=== PATIENT | female | born 1970 | race Caucasian/White ===

== ENCOUNTER 2016-10-27 19:43 | Emergency (ER) | payer OTHER ==
[~2016-10-27] VITALS: Ht 165.1 cm; Wt 108.9 kg
[2016-10-27 20:06] VITALS: BP 147/102
--- NOTE | 2016-10-27 20:47 | PHYS DOC ---
General Chief Complaint: MECHANICAL FALL Stated Complaint: MECHANICAL FALL Time Seen by MD: 19:51 Source: patient Exam Limitations: no limitations Problems: History of Present Illness Initial Comments Patient is a 46-year-old female who comes to the ED complaining of bilateral ankle injuries and pain. Patient states that immediately prior to arrival she was walking down 3 stairs and slipped causing her to fall. She states her left ankle rolled in an inversion mechanism she has lateral ankle pain at the left ankle with mild swelling at the ATF ligament. The right ankle was forced into extreme dorsiflexion, she has mild swelling and tenderness at the distal lower leg syndesmosis. She denies other injuries from the fall denies head trauma loss of consciousness head or neck pain. She is able to walk with some discomfort, pain described as sharp and throbbing actually absent at rest, moderate to severe with jarring movement. Patient is leaving for [place] next week and is hoping this will not alter her travel plans. No pre-arrival treatment patient is normally healthy. Onset: this afternoon Severity: moderate Pain/Injury Location: bilateral ankle Method of Injury: fell Modifying Factors: worse with jarring, worse with movement, improves with rest Allergies: Coded Allergies: No Known Drug Allergies (Unverified , 10/27/16) Past Medical History Medical History: other (asthma, migraine) Surgical History: noncontributory Social History Smoker: non-smoker Alcohol: none Drugs: none Review of Systems Constitutional: denies chills, denies fever Respiratory: denies cough, denies shortness of breath Cardiovascular: denies chest pain, denies palpitations Gastrointestinal: denies diarrhea, denies nausea, denies vomiting Genitourinary: denies dysuria, denies frequency, denies hematuria Musculoskeletal: see HPI Skin: see HPI Psychiatric/Neurological: see HPI Physical Exam General Appearance: WD/WN, no apparent distress HEENT: normal ENT inspection Neck: non-tender, supple Cardiovascular/Respiratory: normal peripheral pulses, no respiratory distress Back: no CVA tenderness, no vertebral tenderness Ankles: left ankle soft tissue tenderness (left ankle with mild swelling, tenderness at the anterior talofibular ligament negative drawer, no bony tenderness no ecchymosis or skin breaks no palpable deformity. The extremity is neurovascularly intact.), right ankle swelling (localized tenderness and swelling at the distal lower extremities syndesmosis consistent with high ankle sprain, no bony tenderness no palpable deformity ligaments and tendons are intact the extremity is neurovascularly intact) Neurologic/Tendon: normal sensation, normal motor functions, normal tendon functions, responds to pain, no evidence tendon injury Psychiatric: alert, oriented x 3 Skin: normal color, warm/dry Orders, Labs, Meds Bilateral ankles: No acute osseous abnormality, interpreted by me Departure Time of Disposition: 20:44 Disposition: 01 HOME, SELF-CARE Diagnosis: R High ankle sprain, L lateral ankle sprain, fall Condition: GOOD Patient Instructions: Ankle Sprain, Acute, with Phase I Rehab-SportsMedLIZ[facility]T - Routine Care for Injuries, [id number] Additional Instructions: RICE, see handout. Aggressive icing and elevation of both ankles to prevent swelling and to allow them to get better more quickly see you can enjoy [place]. Activity as tolerated, avoid prolonged walking and standing for the next few days to minimize swelling. [id number] Tylenol and ibuprofen as needed. A Tylenol 3 starter pack was dispensed to you in the emergency department tonight for breakthrough pain tonight. Take 1-2 every 6 hours as needed for severe breakthrough pain, take with food to avoid nausea. Follow-up with your doctor next week for recheck Return to the ED with new or changing symptoms. ELISEO JENKINS DO Oct 27, 2016 20:47
[2016-10-27] MEDS ORDERED: ACETAMINOPHEN/CODEINE 300/30MG 4TABLET STARTPACK. PO ONE (21:00)
--- NOTE | 2016-10-28 09:11 | RAD ---
Indication fall. Bilateral ankle pain. AP oblique and lateral views of both ankles were obtained. Views of the left ankle appear normal. No bony abnormality is seen. Views of the right ankle also appear normal. No bony abnormality is seen. IMPRESSION: Normal plain films of both ankles
== END 2016-10-27 20:55 | disposition home or self-care (01) ==
LOC: ER 19:43
DX: S93.401A Sprain of unspecified ligament of right ankle, initial encounter (principal); S93.402A Sprain of unspecified ligament of left ankle, initial encounter; J45.909 Unspecified asthma, uncomplicated; G43.909 Migraine, unspecified, not intractable, without status migrainosus; W01.0XXA Fall on same level from slipping, tripping and stumbling without subsequent striking against object, initial encounter; Y93.01 Activity, walking, marching and hiking; Y99.8 Other external cause status; Y92.89 Other specified places as the place of occurrence of the external cause
CPT/HCPCS: 73610; 99284

== ENCOUNTER 2016-12-21 18:24 | Emergency (ER) | payer OTHER ==
[~2016-12-21] VITALS: Ht 165.1 cm; Wt 108.9 kg
[2016-12-21] MEDS ORDERED: IV NORMAL SALINE 1,000ML 1,000 ML IV SCH (19:19)
[2016-12-21] MEDS ORDERED: FAMOTIDINE 20 MG/2 ML VIAL IVP ONE (19:30)
[2016-12-21] MEDS ORDERED: KETOROLAC 30 MG/ML VIAL. IV ONE (19:30)
[2016-12-21] MEDS ORDERED: LIDO:MAALOX 1:1 20 ML SINGLE DOSE PO ONE (19:30)
[2016-12-21 19:57] LABS: BASO % 0 % (0-3); EOS # 0.6 x10^3/uL (0.0-0.7); EOS % 5 % (0-3); HEMATOCRIT 45.4 % (36.0-47.0); HEMOGLOBIN 14.7 g/dL (12.0-15.5); LYMPH # 2.2 x10^3/uL (1.0-4.8); LYMPH % 18 % (24-48); MEAN CORPUSCULAR HEMOGLOBIN 28 pg (25-35); MEAN CORPUSCULAR HGB CONC 32 g/dL (31-37); MEAN CORPUSCULAR VOLUME 85 fL (79-100); MONO # 0.9 x10^3/uL (0.0-1.1); MONO % 8 % (0-9); NEUT # 8.5 x10^3uL (1.8-7.7); NEUT % 69 % (31-73); PLATELET COUNT 269 x10^3/uL (140-400); RED BLOOD COUNT 5.34 x10^6/uL (3.50-5.40); RED CELL DISTRIBUTION WIDTH 13.7 % (11.5-14.5); WHITE BLOOD COUNT 12.3 x10^3/uL (4.0-11.0)
[2016-12-21 20:06] LABS: ALBUMIN 3.6 g/dL (3.4-5.0); ALBUMIN/GLOBULIN RATIO 0.9 (1.0-1.7); CALCIUM 8.8 mg/dL (8.5-10.1); CREATININE 0.9 mg/dL (0.6-1.0); TOTAL BILIRUBIN 0.3 mg/dL (0.2-1.0); TOTAL PROTEIN 7.4 g/dL (6.4-8.2)
--- NOTE | 2016-12-21 21:19 | PHYS DOC ---
General Chief Complaint: ABDOMINAL PAIN Stated Complaint: UPPER ABDOM PAIN Time Seen by MD: 18:38 Source: patient Exam Limitations: no limitations Problems: History of Present Illness Initial Comments Patient is a 46-year-old female who comes to the ED complaining of epigastric and lower rib pain. Patient states that for the past several days she's had intermittent epigastric/ bilateral lower rib pains worse with certain movements deep breath and coughs. She denies any injury recent strenuous activity or respiratory illness. She denies any recent rapid weight gain or loss. No fever chills sweats or myalgias no chest pain shortness of breath nausea vomiting or diaphoresis. No pre- arrival treatment patient has history of asthma and migraines no smoking history. ED vitals are normal Timing/Duration: constant Severity: moderate Modifying Factors: worse with movement, improves with rest Associated Symptoms: other Allergies: Coded Allergies: No Known Drug Allergies (Unverified , 10/27/16) Past Medical History Medical History: asthma, migraines Surgical History: noncontributory Social History Smoker: non-smoker Alcohol: none Drugs: none Review of Systems Constitutional: denies chills, denies fever, denies malaise Respiratory: see HPI Cardiovascular: see HPI Gastrointestinal: see HPI Genitourinary: denies dysuria, denies frequency, denies hematuria Musculoskeletal: denies back pain, denies joint pain, denies neck pain Psychiatric/Neurological: denies headache, denies numbness, denies paresthesia Hematologic/Lymphatic: denies blood clots, denies easy bleeding, denies easy bruising Physical Exam General Appearance: no apparent distress, obese Eyes: bilateral eye normal inspection, bilateral eye PERRL, bilateral eye EOMI Ear, Nose, Throat: hearing grossly normal, normal ENT inspection Neck: full range of motion, supple Respiratory: normal breath sounds, no respiratory distress, other (palpation of the sternal costal cartilage and bilateral lower rib palpation reproduces chief complaint) Cardiovascular: normal peripheral pulses, regular rate, rhythm Gastrointestinal: non tender, soft Back: no CVA tenderness, no vertebral tenderness Extremities: non-tender, normal inspection Neurologic/Psychiatric: hearing aid dispenser II-XII nml as tested, no motor/sensory deficits, alert, normal mood/affect, oriented x 3 Skin: normal color, warm/dry Orders, Labs, Meds EKG: NSR 99 bpm, nonspecific ST T changes no STEMI. Interpreted by me. Chest AP: Poor inspiratory effort no acute cardiopulmonary process interpreted by Dr. Frias. Reassuring labs. Symptoms have improved with Toradol. I discussed costochondritis the patient is relieved and the discharge plan discussed see departure. Departure Time of Disposition: 21:33 Disposition: 01 HOME, SELF-CARE Diagnosis: costochondritis, hypovolemia, hematuria, bronchiti Condition: GOOD Patient Instructions: Costochondritis, Sjnv-[id number], Dehydration, Adult, Easy- to-Read, Hematuria, Adult Additional Instructions: Aggressive hydration with gatorade, water. OTC tylenol/ibuprofen as needed. Rx: [id number] Follow up on Post in 2-3 days for recheck of symptoms and UA. If blood still present may require referral evaluation. Return to ED with new or changing symptoms. ELISEO FRIAS DO Dec 21, 2016 21:19
[2016-12-21 21:24] LABS: BACTERIA,URINE FEW /HPF (0-FEW); BILIRUBIN,URINE NEG (NEG); CLARITY,URINE HAZY; COLOR,URINE YELLOW; GLUCOSE,URINE NEG (NEG); NITRITE,URINE NEG (NEG); RBC,URINE 20-40 /HPF (0-2); SQUAMOUS EPITHELIAL CELL,UR MOD /LPF; UROBILINOGEN,URINE 0.2 mg/dL (0.2 mg/dL); WBC,URINE OCC /HPF (0-4)
[2016-12-21] MEDS ORDERED: AZIT250T PO (21:36)
[2016-12-21 21:42] VITALS: BP 118/69
--- NOTE | 2016-12-22 08:35 | RAD ---
AP portable chest radiograph 12/21/2016 Clinical History: Chest pain since earlier in the evening. An AP portable erect digital radiograph of the chest was obtained. No previous studies are available for comparison. The cardiac and mediastinal silhouettes are within normal limits. No acute pulmonary infiltrate is seen. No pleural effusion or pneumothorax is noted. Mild degenerative changes are seen involving the thoracic spine and both shoulders. Impression: No acute abnormality is seen.
--- NOTE | 2016-12-22 13:48 | EKG ---
[address] [address] Test Date: 2016-12-21 Test Time: 19:07:55 Pat Name: NITZA LINN Department: Room: Gender: F It Desktop Support Technician: MERLY : 1970 Requested By: ELISEO JENKINS Order Number: [id number] Reading MD: Evan Dominguez Measurements Intervals [place] Rate: 99 P: 22 OR: 116 QRS: 25 QRSD: 88 T: 17 QT: 328 QTc: 426 Interpretive Statements SINUS RHYTHM Electronically Signed On 12-23-2016 9:32:37 CDT by Evan Dominguez
== END 2016-12-21 21:43 | disposition home or self-care (01) ==
LOC: ER 18:24
DX: M94.0 Chondrocostal junction syndrome [Tietze] (principal); E86.1 Hypovolemia; R31.9 Hematuria, unspecified; J40 Bronchitis, not specified as acute or chronic; J45.909 Unspecified asthma, uncomplicated; G43.909 Migraine, unspecified, not intractable, without status migrainosus
CPT/HCPCS: 36415; 71010; 80053; 81001; 83690; 84484; 85025; 96361; 96374; 96375; 99285; J1885; S0028; J7030